=== PATIENT | male | born 2000 | race Caucasian/White ===

== ENCOUNTER 2022-07-10 20:00 | Emergency (ER) | payer MEDICAID, SELFPAY ==
[2022-07-10 20:04] VITALS: BP 155/89; PULSE 87; RESP 18; TEMP 36.6; O2SAT 97
--- NOTE | 2022-07-10 20:07 | ED.GENADULT ---
HPI - General Adult General Chief complaint: Unspecified Stated complaint: ALTERED LOC AFTER SMOKING MARIJUANA History of Present Illness HPI narrative: 22-year-old male presented to ED for evaluation after smoking K2 and THC. Patient states after smoking K2 at approximately 6 PM he was hallucinating that there was a female that had been next to him. Patient reports after the baseball game he went to go look for and ended up trespassing in [address] someone's house. The police were called and patient was escorted out of the house without any issues. No charges were filed. Patient was transported to the ED by EMS. Upon arrival to the ED patient denies any complaints with patient is tearful due to the events Review of Systems Review of Systems: All systems reviewed & are unremarkable except as noted in HPI and below Exam Narrative: APPEARANCE: Well appearing, no pain, no distress, well-nourished. HEAD: normocephalic, atraumatic. EYES: PERRLA/EOMI, conjunctivae clear. NOSE: Normal no drainage NECK: Supple. No adenopathy, no masses. RESPIRATORY: Airway patent, respirations nonlabored. Clear to auscultation bilaterally, no rales, rhonchi, wheezing. CARDIOVASCULAR: Regular rate and rhythm without murmurs rubs or gallops. ABDOMINAL: Soft, nontender, nondistended, normal bowel sounds MUSCULOSKELETAL: Moves all extremities. Strength/ROM intact, No edema, No calf tenderness. NEURO: Alert. Cranial nerves II through XII intact. Grossly intact SKIN: Warm, dry. Normal Color PSYCHIATRIC: Tearful affect Course Course Emergency Course: Patient does feel improved with treatment. Patient is alert oriented and patient has no complaints. Patient has no leukocytosis hemoglobin is stable. Patient has no significant electrode abnormalities. Patient and family were updated on the results of the work-up and was suggested to refrain from THC and K2. All questions and concerns were addressed. Vital Signs Vital signs: Vital Signs Temperature 98 F 07/10/22 20:04 Pulse Rate 87 07/10/22 20:04 Respiratory Rate 18 07/10/22 20:04 Blood Pressure 155/89 H 07/10/22 20:04 Pulse Oximetry 97 07/10/22 20:04 Oxygen Delivery Room Air 07/10/22 20:04 Temperature 98 F 07/10/22 20:04 Pulse Rate 87 07/10/22 20:04 Respiratory Rate 18 07/10/22 20:04 Blood Pressure 155/89 H 07/10/22 20:04 Pulse Oximetry 97 07/10/22 20:04 Oxygen Delivery Room Air 07/10/22 20:04 Medical Decision Making Differential Diagnosis Differential Diagnosis: Anxiety, THC intoxication Vital Signs Vital Signs: Vital Signs Temperature 98 F 07/10/22 20:04 Pulse Rate 87 07/10/22 20:04 Respiratory Rate 18 07/10/22 20:04 Blood Pressure 155/89 H 07/10/22 20:04 Pulse Oximetry 97 07/10/22 20:04 Oxygen Delivery Room Air 07/10/22 20:04 Temperature 98 F 07/10/22 20:04 Pulse Rate 87 07/10/22 20:04 Respiratory Rate 18 07/10/22 20:04 Blood Pressure 155/89 H 07/10/22 20:04 Pulse Oximetry 97 07/10/22 20:04 Oxygen Delivery Room Air 07/10/22 20:04 Lab Data Lab results reviewed: Yes I reviewed the patient's lab results. 07/10/22 20:22 07/10/22 20:22 Labs: Lab Results 07/10/22 Range/Units 20:22 WBC 8.1 (4.5-10.0) K/mm3 RBC 4.71 (4.6-6.20) M/mm3 Hgb 15.3 (14.0-18.0) g/dL Hct 43.3 (42.0-52.0) % MCV 91.9 (80-100) fl MCH 32.5 (26-34) pg MCHC 35.3 (32-36) g/dl RDW 12.8 (11.5-14.5) % Plt Count 273 (150-375) k/mm3 MPV 9.0 (7.4-10.4) fl Immature Gran % (Auto) 0.1 (0-0.5) % Neut % (Auto) 63.5 (45.5-73.1) % Lymph % (Auto) 25.4 (18.3-44.2) % [place] % (Auto) 9.7 H (2.6-8.5) % Eos % (Auto) 0.7 (0-4.4) % Baso % (Auto) 0.6 (0.2-1.2) % Lymph # (Auto) 2.05 (0.9-3.2) K/mm3 [place] # (Auto) 0.8 H (0.1-0.6) K/mm3 Eos # (Auto) 0.1 (0-0.3) K/mm3 Baso # (Auto) 0.1 (0.0-0.1) K/mm3 Abs Immat Gran (auto) 0.01 (0.00-0.031) K/mm3 Absolute Neuts
[2022-07-10 20:28] LABS: Basophils Absolute Auto 0.1 K/mm3 (0.0-0.1); Basophils Percent Auto 0.6 % (0.2-1.2); Eosinophils Absolute Auto 0.1 K/mm3 (0-0.3); Eosinophils Percent Auto 0.7 % (0-4.4); Hematocrit 43.3 % (42.0-52.0); Hemoglobin 15.3 g/dL (14.0-18.0); Immature Granulocyte Absolute 0.01 K/mm3 (0.00-0.031); Immature Granulocyte Percent A 0.1 % (0-0.5); Lymphocytes Absolute Auto 2.05 K/mm3 (0.9-3.2); Lymphocytes Percent Auto 25.4 % (18.3-44.2); Mean Corpuscular HGB Conc 35.3 g/dl (32-36); Mean Corpuscular Hemoglobin 32.5 pg (26-34); Mean Corpuscular Volume 91.9 fl (80-100); Monocytes Absolute Auto 0.8 K/mm3 (0.1-0.6); Monocytes Percent Auto 9.7 % (2.6-8.5); Neutrophils Absolute Auto 5.1 K/mm3 (1.3-6.7); Neutrophils Percent Auto 63.5 % (45.5-73.1); Platelet Count Result 273 k/mm3 (150-375); Red Blood Count 4.71 M/mm3 (4.6-6.20); Red Cell Distribution Width 12.8 % (11.5-14.5); White Blood Count 8.1 K/mm3 (4.5-10.0)
[2022-07-10 20:38] LABS: Alanine Aminotransferase 17 U/L (6-50); Albumin Level 4.5 g/dL (3.5-5.1); Alkaline Phosphatase 78 U/L (38-126); Anion Gap 7 mmol/L (8-16); Aspartate Amino Transferase 26 U/L (17-59); Blood Urea Nitrogen 9 mg/dL (9-20); Calcium 9.3 mg/dL (8.4-10.2); Carbon Dioxide 27 mmol/L (22-30); Chloride 104 mmol/L (98-107); Estimated CRCL calculation 141 ml/min; Estimated Glomerular Filt Rate > 60; Glucose 99 mg/dL (65-110); Sodium 138 mmol/L (137-145)
== END 2022-07-10 21:22 | disposition home or self-care (01) ==
PROVIDERS: Emergency Provider Emergency Medicine
DX: R41.82 Altered mental status, unspecified (principal); F12.921 Cannabis use, unspecified with intoxication delirium
CPT/HCPCS: 36415; 80053; 85025; 99283